=== PATIENT | male | born 1950 | race Caucasian/White ===

== ENCOUNTER 2020-04-29 20:55 | Emergency (ER) | payer MEDICARE ==
[~2020-04-29] VITALS: Ht 172.7 cm; Wt 75.0 kg
[2020-04-29] MEDS ORDERED: FLUORESCEIN OPHTHALMIC 1 MG STRIP ONE (21:23)
[2020-04-29] MEDS ORDERED: PROPARACAINE OPHTH 0.5%, 15ML ONE (21:23)
--- NOTE | 2020-04-29 21:24 | NUR ---
ERP AT BS.
[2020-04-29] MEDS ORDERED: PROPARACAINE OPHTH 0.5%, 15ML EACHEYE ONE (21:30)
[2020-04-29] MEDS ORDERED: FLUORESCEIN OPHTHALMIC 1 MG STRIP EACHEYE ONE (21:30)
[2020-04-29] MEDS ORDERED: ROSU20TA2 PO (21:50)
[2020-04-29] MEDS ORDERED: LISI-167 PO (21:50)
[2020-04-29] MEDS ORDERED: ASPI-963 PO (21:50)
[2020-04-29] MEDS ORDERED: POLYTRIM OPHTH 10ML LEFTEYE ONE (22:00)
[2020-04-29 22:15] VITALS: BP 150/81
--- NOTE | 2020-04-29 22:22 | NUR ---
D/C INSTRUCTIONS, MEDS & F/U APPT RV'WD WITH PT, HE VERBALIZES UNDERSTANDING. RX GIVEN X1. POLYMIXIN EYE DROP BOTTLE FROM ED PROVIDED TO PT TO TAKE HOME. INSTRUCTED PT TO RETURN IF SYMPTOMS NOT IMPROVING. AMBULATED OUT OF ED WITH SPOUSE WITHOUT DIFFICULTY.
== END 2020-04-29 22:21 | disposition home or self-care (01) ==
LOC: ED 22:20
DX: H10.232 Serous conjunctivitis, except viral, left eye (principal); I10 Essential (primary) hypertension; E78.00 Pure hypercholesterolemia, unspecified
CPT/HCPCS: 99284